=== PATIENT | male | born 1980 | race Caucasian/White ===

== ENCOUNTER 2017-12-18 02:41 | Emergency (ER) | payer OTHER ==
[~2017-12-18] VITALS: Ht 165.1 cm; Wt 72.7 kg
[2017-12-18 03:53] LABS: BASOPHIL % 0.3 % (0-2); PLATELET COUNT 223 x10^3mcL (130-400); RED CELL DISTRIBUTION WIDTH 13.1 % (11.5-14.5)
[2017-12-18 04:09] LABS: CALCIUM 8.5 mg/dL (8.5-10.1); CARBON DIOXIDE 31.1 mmol/L (21-32); CHLORIDE SERUM 101 mmol/L (98-107); CREATININE SERUM 0.8 mg/dL (0.7-1.3); GFR1 > 60 mL/min; GLUCOSE SERUM 93 mg/dL (74-106); POTASSIUM SERUM 3.8 mmol/L (3.5-5.1); SODIUM SERUM 137 mmol/L (136-145)
[2017-12-18 04:14] LABS: ALBUMIN 3.8 g/dL (3.4-5.0); ALKALINE PHOSPHATASE 85 U/L (46-116); ALT/SGPT 44 U/L (16-63); AST/SGOT 32 U/L (15-37); BILIRUBIN TOTAL 0.29 mg/dL (0.20-1.00); LIPASE 99 IU/L (73-393)
[2017-12-18 05:24] VITALS: BP 131/74
== END 2017-12-18 05:24 | disposition home or self-care (01) ==
LOC: ED 02:41
PROVIDERS: Emergency Medicine
DX: K21.9 Gastro-esophageal reflux disease without esophagitis (principal)

== ENCOUNTER 2019-03-17 00:45 | Emergency (ER) | payer SELFPAY ==
[~2019-03-17] VITALS: Ht 167.6 cm; Wt 69.9 kg
[2019-03-17 01:16] VITALS: Ht 167.6 cm; Wt 69.9 kg
[2019-03-17 02:18] VITALS: BP 120/83
== END 2019-03-17 02:18 | disposition home or self-care (01) ==
LOC: ED 00:45
DX: K08.89 Other specified disorders of teeth and supporting structures (principal); J45.909 Unspecified asthma, uncomplicated; K21.9 Gastro-esophageal reflux disease without esophagitis
CPT/HCPCS: J7030